=== PATIENT | male | born 1965 | race American Indian/Alaskan Native ===

== ENCOUNTER 2016-09-18 22:15 | Emergency (ER) | payer BC ==
[2016-09-19 03:07] VITALS: BP 139/92
[2016-09-19] MEDS ORDERED: BOOSTRIX IM ONE (03:09)
[2016-09-19] MEDS ORDERED: TRIPLE ANTIBIOTIC TP ONE (03:09)
--- NOTE | 2016-09-19 03:26 | Emergency Department Report ---
HPI - General Chief Complaint: Laceration/Recheck/Suture Time Seen by Provider: 09/19/16 02:12 - HPI HPI: 50-year-old male presents today with a laceration of the scalp post hitting his head on a rotating ceiling pain. Past for bleeding at the time of injury. Describes his pain as 2 out of 10 and soreness. Tetanus status unknown. He denies loss of consciousness. Denies headache, nausea, vomiting, visual changes , dizziness, chest pain, shortness of breath, abdominal pain. ED Past Medical Hx - Past Medical History Previous Medical History?: Yes Hx Hypertension: Yes - Surgical History Past Surgical History?: No Hx Coronary Stent: No Hx Open Heart Surgery: No Hx Pacemaker: No Hx Internal Defibrillator: No Hx Cholecystectomy: No Hx Appendectomy: No - Social History Smoking Status: Light Tobacco Smoker Substance Use Type: Alcohol - Medications Home Medications: Home Medications Medication Instructions Recorded Confirmed Last Taken Type Ibuprofen [Motrin 600 MG tab] 600 mg PO Q8H PRN #20 tablet 09/19/16 Unknown Rx Neomy/Baci/Polymyx Oint [Triple 1 applic TP BID #1 tube 09/19/16 Unknown Rx Antibiotic] ED Review of Systems ROS: Stated complaint: HEAD INJURY Other details as noted in HPI Constitutional: denies: chills, fever, malaise Eyes: denies: eye pain, vision change ENT: denies: ear pain, throat pain, congestion Respiratory: denies: cough, shortness of breath, wheezing Cardiovascular: denies: chest pain, palpitations Endocrine: no symptoms reported Gastrointestinal: denies: abdominal pain, nausea, vomiting Neurological: denies: headache, weakness, numbness, paresthesias Physical Exam - Physical Exam Vital Signs: Vital Signs 09/18/16 09/19/16 22:34 03:06 Temperature 98.5 F 98.5 F Pulse Rate 77 75 Respiratory 18 20 Rate Blood Pressure 143/106 Blood Pressure 139/92 [Right] O2 Sat by Pulse 95 99 Oximetry Physical Exam: GENERAL: The patient is well-developed and well-nourished. Patient is in NAD. HEAD: Normocephalic. 1 cm superficial laceration noted over the right parietal region. No active bleeding. EYES: Extraocular motions are intact, PERRL. NOSE: Normal nasal mucosa with no nasal discharge. THROAT: No erythema, swelling or exudates. NECK: No midline or paraspinal tenderness to palpation. Full range of motion. CHEST/LUNGS: Clear to auscultation throughout. HEART/CARDIOVASCULAR: Regular rate and rhythm. ABDOMEN: Abdomen is soft, nontender. No guarding or rebound tenderness. EXTREMITIES: Peripheral pulses intact. Capillary refill less than 2 seconds. NEURO: Alert and oriented x 3. Normal gait. CN II-XII intact. Symmetrical strength and sensation. Negative Romberg and pronator drift. Cerebellar testing normal. GCS score of 15. ED Course Vital Signs 09/18/16 09/19/16 22:34 03:06 Temperature 98.5 F 98.5 F Pulse Rate 77 75 Respiratory 18 20 Rate Blood Pressure 143/106 Blood Pressure 139/92 [Right] O2 Sat by Pulse 95 99 Oximetry - Procedure Description Procedures done: 50-year-old male presents today with a 1 cm superficial laceration over the right parietal region. The wound was copiously irrigated. No active bleeding noted. Triple antibiotic ointment was applied. Patient tolerated procedure well. Wound care instructions were provided. ED Medical Decision Making - Lab Data Vital Signs 09/18/16 09/19/16 22:34 03:06 Temperature 98.5 F 98.5 F Pulse Rate 77 75 Respiratory 18 20 Rate Blood Pressure 143/106 Blood Pressure 139/92 [Right] O2 Sat by Pulse 95 99 Oximetry - Medical Decision Making 50-year-old male presents today with a laceration to his right parietal region. His neurological exam is unremarkable. His wound was copiously irrigated and dressed. His tetanus status was updated today. Patient is in no acute distress at this time. He will be discharged home and is encouraged to follow up with a primary care provider. He will be sent home on triple antibiotic ointment and ibuprofen and is encouraged to return to the emergency room for any worsening symptoms. Critical care attestation.: If time is entered above; I have spent that time in minutes in the direct care of this critically ill patient, excluding procedure time. ED Disposition Clinical Impression: Scalp laceration Qualifiers: Encounter type: initial encounter Qualified Code(s): S01.01XA - Laceration without foreign body of scalp, initial encounter Disposition: DISCHARGED TO HOME OR SELFCARE Is pt being admited?: No Does the pt Need Aspirin: No Condition: Stable Instructions: Minor Head Injury (ED) Additional Instructions: Follow-up with primary care provider. Return to the emergency department if symptoms worsen. Prescriptions: Ibuprofen [Motrin 600 MG tab] 600 mg PO Q8H PRN #20 tablet PRN Reason: Pain Neomy/Baci/Polymyx Oint [Triple Antibiotic] 1 applic TP BID #1 tube Referrals: RAJANI HIDALGO MD [Primary Care Provider] - 3-5 Days [facility] [Outside] - 3-5 Days Forms: Work/School Release Form(ED) Time of Disposition: 03:29
== END 2016-09-19 03:52 | disposition home or self-care (01) ==
LOC: ED 22:15
DX: S01.01XA Laceration without foreign body of scalp, initial encounter (principal); F17.200 Nicotine dependence, unspecified, uncomplicated; W22.8XXA Striking against or struck by other objects, initial encounter; Y93.89 Activity, other specified; Y92.89 Other specified places as the place of occurrence of the external cause; Y99.8 Other external cause status
CPT/HCPCS: 90471; 90715; 99283; A6250